=== PATIENT | female | born 1985 | race Caucasian/White ===

== ENCOUNTER 2021-12-05 14:11 | Outpatient (RCR) | payer BC, MEDICAID, SELFPAY | END 2022-10-03 23:59 | disposition home or self-care (01) | PROVIDERS: PCP Nurse Practitioner Family; Visit Provider Nurse Practitioner Family | DX: S93.402D Sprain of unspecified ligament of left ankle, subsequent encounter (principal); Z51.89 Encounter for other specified aftercare | CPT/HCPCS: 97110; 97162 ==

== ENCOUNTER 2022-05-10 10:38 | Emergency (ER) | payer OTHER, SELFPAY ==
[2022-05-10 10:47] VITALS: BP 135/74; PULSE 84; RESP 20; TEMP 36.4; O2SAT 98; BMI 31.1
--- NOTE | 2022-05-10 11:16 | ED.GENADULT ---
HPI - General Adult General Chief complaint: Laceration/Wound Stated complaint: Work Comp-Finger laceration Time Seen by Provider: 05/10/22 10:58 Source: patient Mode of arrival: ambulatory Limitations: no limitations History of Present Illness HPI narrative: 37-year-old female coming in today after suffering a laceration. Patient was at work at [employer] cutting food with a knife when she accidentally sliced a piece of her thumb off. Denies any other injury. Tetanus shot is up-to-date. Related Data Home Medications Medication Instructions Recorded Confirmed albuterol sulfate 90 mcg/actuation 2 inh inhalation Q4H PRN 10/29/21 05/10/22 aerosol inhaler (Ventolin HFA) diclofenac sodium 1 % topical gel 2 g topical QID 10/29/21 05/10/22 (Voltaren Arthritis Pain) levonorgestrel 21 mcg/24 hours (8 1 device intrauterine ONCE 12/14/21 05/10/22 yrs) 52 mg intrauterine device (Mirena) Allergies Allergy/AdvReac Type Severity Reaction Status Date / Time No Known Drug Allergies Allergy Verified 03/25/22 15:06 Review of Systems Status of ROS: Reports: 6 or more systems reviewed and unremarkable except as noted in History and below PFSH PFSH Family History (Updated 09/26/21 @ 13:32 by Jessica Abrams) Other Cancer Social History Smoking Status: Current every day smoker What tobacco products do you use: cigarettes Smoking packs per day: 0.5 Smoking cigarettes per day: 10.0 Do you use any of these nicotine containing products: None Second hand tobacco smoke exposure: No How often do you have a drink containing alcohol: never How many standard drinks containing alcohol do you have on a typical day: 1 or 2 How often do you have six or more drinks on one occasion: Less than monthly AUDIT-C Alcohol total score: 1 Non-prescribed substance use: denies use Exam Narrative: Exam Narrative: Well-nourished well-developed patient in no acute distress. Alert and oriented. Answers questions appropriately. Mood and affect are appropriate. Thoughts are goal oriented and rational. No tangential or magical thinking noted. Patient speaks in full sentences without needing to catch her breath. HEENT: Normocephalic atraumatic. Pupils are equally round reactive to light. Extraocular muscles are intact. Conjunctivae are moist without any icterus noted. Extremities: Patient has a laceration to the medial tip of the left thumb. The laceration is approximately 5-6 mm in length and 2-3 mm wide. She has cut the skin clear off. She has oozing around the skin edges, no arterial bleed noted. Const: Vital Signs, click to edit/add: Vital Signs - 24 hr 05/10/22 10:47 Temperature 97.5 F L Pulse Rate [Pulse Oximeter] 84 Respiratory Rate 20 Blood Pressure [Ri ght Upper Arm] 135/74 Pulse Oximetry 98 Oxygen Delivery Me thod Room Air Course Course Hospital Course: Finger was cleaned with wound cleanser and wound explored. Surgicel was used for hemostasis. Laceration was dressed appropriately. There was nothing to be sutured together. Vital Signs Vital signs: Initial Vital Signs Temperature 97.5 F L 05/10/22 10:47 Temperature Source Temporal Artery Scan 05/10/22 10:47 Pulse Rate 84 05/10/22 10:47 Respiratory Rate 20 05/10/22 10:47 Blood Pressure 135/74 05/10/22 10:47 Blood Pressure Mean 94 05/10/22 10:47 Blood Pressure Position Sitting 05/10/22 10:47 Pulse Oximetry 98 05/10/22 10:47 Oxygen Delivery Method 05/10/22 10:47 Vital Signs Temperature 97.5 F L 05/10/22 10:47 Pulse Rate 84 05/10/22 10:47 Respiratory Rate 20 05/10/22 10:47 Blood Pressure 135/74 05/10/22 10:47 Pulse Oximetry 98 05/10/22 10:47 Oxygen Delivery Method 05/10/22 10:47 Temperature 97.5 F L 05/10/22 10:47 Pulse Rate 84 05/10/22 10:47 Respiratory Rate 20 05/10/22 10:47 Blood Pressure 135/74 05/10/22 10:47 Pulse Oximetry 98 05/10/22 10:47 Oxygen Delivery Method 05/10/22 10:47 Medical Decision Making MDM Narrative Medical decision making narrative: 37-year-old female a laceration treated per above. We discussed wound hygiene, signs symptoms of infections, reasons to return for follow-up. Patient was agreeable and had no other questions. Discharge Plan Discharge Clinical Impression: Laceration Patient Disposition: Home, Self-Care Condition: Improved Additional Instructions: Keep finger clean and dry. Okay to shower as usual. Do not soak the finger such as bathing or swimming. Change dressing once daily. Monitor for signs of infection which include redness of the thumb, swelling or purulent drainage. Follow-up with your doctor right away if this occurs. Prescriptions: No Action albuterol sulfate [Ventolin HFA] 90 mcg/actuation HFA aerosol inhaler 2 inh inhalation Q4H PRN diclofenac sodium [Voltaren Arthritis Pain] 1 % gel 2 g topical QID Rx Instructions: apply to single elbow, wrist or hand; for hand includes palm/fingers/back of hand Mirena 20 mcg/24 hours (7 yrs) 52 mg intrauterine device 1 device intrauterine ONCE Rx Instructions: as a single dose Follow Up/Referrals: Emilee Byrd APRN, HERBICIDE SPRAYER [Primary Care Provider] - Stand Alone Forms: [facility] Info Instructions
== END 2022-05-10 11:32 | disposition home or self-care (01) ==
PROVIDERS: Emergency Provider Family Medicine; PCP Nurse Practitioner Family
DX: S61.012A Laceration without foreign body of left thumb without damage to nail, initial encounter (principal); W26.0XXA Contact with knife, initial encounter; Y99.0 Civilian activity done for income or pay
CPT/HCPCS: 12001; 99283

== ENCOUNTER 2022-06-24 08:42 | Outpatient (CLI) | payer OTHER, SELFPAY | END 2022-06-24 08:43 | disposition home or self-care (01) | PROVIDERS: PCP Nurse Practitioner Family; Visit Provider Nurse Practitioner Family | DX: Z11.59 Encounter for screening for other viral diseases (principal) | CPT/HCPCS: 86706; 86765; 86787 ==

== ENCOUNTER 2022-12-18 11:05 | Outpatient (CLI) | payer OTHER, SELFPAY ==
[2022-12-18 14:00] LABS: Clue Cells No Clue Cells Seen (None Seen); Trichomonas No Trichomonas Seen (None Seen); Yeast No Yeast Seen (None Seen)
== END 2022-12-18 11:06 | disposition home or self-care (01) ==
LOC: FBOREF 11:10
PROVIDERS: PCP Nurse Practitioner Family; Visit Provider Family Medicine
DX: N89.8 Other specified noninflammatory disorders of vagina (principal)
CPT/HCPCS: 87210

== ENCOUNTER 2023-02-20 08:08 | Outpatient (CLI) | payer OTHER, SELFPAY ==
[2023-02-20 14:12] LABS: SARS PCR* POSITIVE SARS-CoV-2 (Negative)
== END 2023-02-20 08:09 | disposition home or self-care (01) ==
LOC: KYNREF 08:08
PROVIDERS: PCP Nurse Practitioner Family; Visit Provider Nurse Practitioner Family
DX: Z20.822 Contact with and (suspected) exposure to COVID-19 (principal)
CPT/HCPCS: 87635

== ENCOUNTER 2023-10-24 09:58 | Outpatient (CLI) | payer OTHER, SELFPAY ==
--- OUTSIDE RECORDS SUMMARY | 2023-10-24 10:01 | XMS_ITS ---
Author Organization [facility] Address [address] [place] [address] Care Team Providers Care Sales Systems Engineer Name Role Phone Unavailable Unavailable Unavailable Surgery Details Not on file Complications Check Surgery Details section. Procedure Estimated Blood Loss Check Surgery Details section. Procedure Findings Check Surgery Details section. Procedure Specimens Taken Check Surgery Details section.
--- OUTSIDE RECORDS SUMMARY | 2023-10-24 10:01 | XMS_ITS | Clinical Summary ---
Author Organization [facility] Address [place], [place] [address] Care Team Providers Care Landscaping Manager Name Role Phone Peyton Polanco Shaila PA Unavailable [phone] Emilee Byrd TRIMMING MACHINE OPERATOR Primary Care Provider [phone] Allergies No known active allergies Medications Medication Sig Dispensed Refills Start Date End Date Status acetaminophen (TYLENOL EXTRA STRGTH) 500 mg tabletIndications: Changing skin lesion Take 1-2 Tablets by mouth every 6 hours if needed. Max acetaminophen dose: 4000mg in 24 hrs. 05/25/2020 Active ibuprofen (ADVIL; MOTRIN) 200 mg tabletIndications: Changing skin lesion Take 1-3 Tablets by mouth every 6 hours if needed for Pain. 50 Tablet 05/25/2020 Active durable medical equipment (DME)Indications:S prain of right ankle, unspecified ligament, subsequent encounter Neoprene ankle brace. 1 Each 09/29/2020 Active Ventolin HFA 90 mcg/actuation inhaler INHALE 2 PUFFS BY MOUTH EVERY 4 HOURS NEEDED FOR COUGH 05/31/2021 Active codeine-guaiFENesi n (ROBITUSSIN AC) 10-100 mg/5 mL liquid TAKE 10 TO 15 ML BY MOUTH EVERY 6 HOURS 05/31/2021 Active benzonatate (TESSALON) 200 mg capsuleIndications :Cough Take 1 Capsule (200 mg) by mouth 3 times daily if needed for Cough. 21 Capsule 07/25/2021 Active albuterol HFA (PRO-AIR; VENTOLIN; PROVENTIL) 90 mcg/actuation inhalerIndications :Cough Inhale 1-2 Puffs by mouth every 4 hours if needed for Shortness of Breath 1st choice or Wheezing 2nd choice. 1 Each 07/25/2021 Active CrutchIndications: Left foot pain For home use. 2 Each 11/04/2021 Active Active Problems Problem Noted Date Diagnosed Date IUD (intrauterine device) in place 05/22/2020 Overview: 12/2017 mirena. Screening breast examination 06/26/2015 Immunizations Name Administration Dates Next Due COVID-19 vaccine (iBio 30mcg/0.3mL) P F, MDV 08/31/2020,08/10/2020 Influenza Virus, Unspecified 03/04/2014 Influenza, IIV4 03/04/2014 Influenza, IIV4 (=>6mos) MDV 02/13/2015 Rubella 10/31/2005 Tdap 02/04/2020,09/09/2017 Family History Medical History Relation Name Comments Cancer-colon Father Relation Name Status Comments Father Social History Tobacco Use Types Packs/Day Years Used Date Smoking Tobacco: Every Day Cigarettes 0.5 10 Smokeless Tobacco: Never Tobacco Cessation:Ready to Q uit: No; Counseling Given: Yes Alcohol Use Standard Drinks/Week Comments Yes 1 (1 standard drink = 0.6 oz pur e alcohol) rare Social Connections Answer Date Recorded Frequency of Communication with Friends and Fami ly Not on file 03/17/2021 Financial Resource Strain Answer Date R ecorded Difficulty of Paying Living Expenses Not on file 03/17/2021 Difficulty of Paying Living Expenses Not on file 03/17/2021 Sex and Gender Information Value Date Recorded Sex Assigned at Not on file Gender Identity Not on file Sexual Orientation Not on file Obstetrics History Para Term AB IAB SAB Ectopic Multiple Livin g Live Births 2 Date Outcome GA Total Labor Labor/2nd/3rd Weight Sex Type Anes PTL Lindsey A1 A5 Name Clin 006 F 008 M Last Filed Vital Signs Vital Sign Reading Time Taken Comments Blood Pressure 126/84 11/04/2021 7:53 AM CDT Pulse 90 11/04/2021 7:53 AM CDT Temperature 37.1 ??C (98.8 ??F) 11/04/2021 7:00 AM CD T Respiratory Rate 18 11/04/2021 7:53 AM CDT Oxygen Saturation 97% 11/04/2021 7:53 AM CDT Inhaled Oxygen Concentration - - Weight 72.6 kg (160 lb) 11/04/2021 7:53 AM CDT Height 152.4 cm (5') 11/04/2021 7:53 AM CDT Body Mass Index 31.25 11/04/2021 7:53 AM CDT Plan of Treatment Health Maintenance Due Date Last Done Comments Depression screening for age 12+ 1998 HIV for age 15-65 2001 Hepatitis C screening for age 18-79 02/13/2004 Pap test for age 21-65 2007 BMI (ht and wt on same day) for age 18+ 09/14/2021 09/14/2020, 09/07/2020, 05/22/2020, Additional history exists COVID-19 vaccine series ( season) 2022 08/31/2020, 08/10/2020 Influenza for age 9-49 11/16/2023 5, 03/04/2014, 03/04/2014 Tetanus booster 02/03/2030 02/04/2020, 09/09/2017 Tdap Completed 02/04/2020, 09/09/2017 Pneumococcal series for age 6-64 Aged Out No longer eligible based on patient's age to complete this topic Advance Directives * Full Code (Latest Code Status on File) Date Activated Date Inactivated Comments 05/25/2020 12:50 PM 05/25/2020 7:07 PM Question Answer Comments Code Status Discussion: Discussed Care Teams Landscaping Manager Relationship Specialty Start Date End Date Emilee Byrd NP [address] [place] [address] [place] [id number] PCP - General Emergency Medicine 11/04/21 Peyton Polanco PA 12/30/18
--- OUTSIDE RECORDS SUMMARY | 2023-10-24 10:01 | XMS_ITS | Clinical Summary ---
Author Organization [facility] Address [address] [place] [address] Care Team Providers Care Labor Relations Supervisor Name Role Phone Elsewhere, Pcp Primary Care Provider Unavailabl e Source Comments Patient records contain information from all sites at [facility]. For routine questions regarding patient records, call [phone] during business hours, M-F 8:00 AM - 5:00 PM Central Time. 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/2018 Moderate Or Severe Use Disor tesha (Dependence) Alcohol Remission 09/24/2018 Overview (09/24/2018): Cessation 08/29/2005 Immunizations Name Administration Dates Next Due Influenza, Injectable, Quadrivalent 02/13/2015 Influenza, Unspecified 03/04/2014 Rubella 10/31/2005 Tdap 09/09/2017 influenza vaccine quad (FLUZ ONE/FLUARIX) (6 months and older)(PF) 03/04/2014 Family History Medical History Relation Name Comments mental health issues Brother No Known Problems Father No Known Problems Mother No Known Problems Paternal Grandmother No Known Problems Sister 1 pat No Known Problems Sister 2 Relation Name Status Comments Brother Alive Father Alive Mother Alive Paternal Grandmother Sister 1 pat Alive Sister 2 Alive Social History Tobacco Use Types Packs/Day Years Used Date Smoking Tobacco: Every Day Cigarettes Humiliation, Afraid, Rape, and Kick questionnair e Answer Date Recorded Fear of Current or Ex-Partner No Emotionally Abused Patient declined 09/24/2018 Physically Abused No 09/24/2018 Sexually Abused Not on file 09/24/2018 Social Connection and Isolat ion Panel [NHANES] Answer Date Recorded Frequency of Communication w ith Friends and Family More than three times a week 09/24/2018 Frequency of Social Gatherin gs with Friends and Family Once a week 09/24/2018 Attends Catholic Services More than 4 times per year 09/24/2018 Active Member of Clubs or Organizations No 09/24/2018 Attends Club or Organization Meetings Never 09/24/2018 Marital Status Not on file 09/24/2018 AUDIT-C Answer Date Recorded Frequency of Alcohol Consumption Never 09/24/2018 Average Number of Drinks Patient declined 2018 Frequency of Binge Drinking Never 09/14 Overall Financial Resource Strain (CARDIA) Answe r Date Recorded Difficulty of Paying Living Expenses Not hard at all 09/24/2018 [employer] [facility] ional Health - Occupational Stress Questionnaire Answer Date Recorded Feeling of Stress To some extent 09/24/2018 Exercise Vital Sign Answer Date Recorde d Days of Exercise per Week 7 days 2018 Minutes of Exercise per Session Not on file 09/24/2018 Hunger Vital Sign Answer Date Recorded Worried About Running Out of Food in the Last Ye ar Never true 09/24/2018 Ran Out of Food in the Last Year Never true 09/24/2018 PRAPARE - Transportation Answer Date Re corded Lack of Transportation (Medical) No 09/24/2018 Lack of Transportation (Non-Medical) No 09/24/2018 Nutrition Answer Date Recorded Nutrition: EVOO Fat Source Unknown 05/18 Nutrition: Servings of Fruits/Vegetables per Day Not on file 05/18/2020 Dental Answer Date Recorded Dental: Regular Dentist Unknown 05/19/19 21 Education Answer Date Recorded What is the highest level of school you have completed or the highest degree you have received? Associate degree: occupational, technical, or vocational program 09/24/2018 Sex and Gender Information Value Date Recorded Sex Assigned at Female 01/13/2020 1:54 PM CDT Gender Identity Female 01/13/2020 1:54 PM CDT Sexual Orientation Straight 01/13/2020 1: 54 PM CDT Last Filed Vital Signs Vital Sign Reading Time Taken Comments Blood Pressure 132/81 10/18/2022 5:45 PM CDT Pulse 74 10/18/2022 5:45 PM CDT Temperature 36.7 ??C (98 ??F) 10/18/2022 5:45 PM CDT Respiratory Rate 15 10/18/2022 5:45 PM CDT Oxygen Saturation 98% 10/18/2022 5:45 PM CDT Inhaled Oxygen Concentration - - Weight 72 kg (158 lb 11.7 oz) 09/24/2018 10:31 A M CDT Height - - Body Mass Index - - Plan of Treatment Health Maintenance Due Date Last Done Comments Lipid (Cholesterol) Screening 1986 Pneumococcal vaccine (0-64 years) (1 of 2 - PCV) 02/13/1992 Hepatitis A Vaccines (1 of 2 - Risk 2-dose series) 2005 Cervical Cancer Screening 12/21/2006 12/22/2003 COVID-19 Vaccine (3 - season) 2022 08/31/2020, 08/10/2020 Depression Screening (Annual PHQ-2) 03/17/2023 Influenza Vaccine (#1) 2023 3, 02/13/2015, 03/04/2014, Additional history exists DTaP,Tdap,and Td Vaccines (3 - Td or Tdap) 02/03/2030 02/04/2020, 09/09/2017 HIV Screening Completed 09/24/2018 Hepatitis B Vaccines Completed 10/28/2022, 07/29/2022, 06/27/2022 HPV Vaccines Aged Out No longer eligi ble based on patient's age to complete this topic Procedures Procedure Name Priority Date/Time Associated Diagnosis Comments HIV-1 P24 AG, HIV-1/2 AB SCRN, P Routine 09/24/2018 11:18 AM CDT Exposure Hepatitis C PATHOLOGY [facility] Routine 12/22/2003 6:09 PM CDT from Last 3 Months or Most Recently Relevant to Health Maintenance Results * HIV-1 p24 Ag, HIV-1/2 Ab Scrn, P (09/24/2018 11:18 AM CDT) HIV Ag/Ab Screen, P Negative Negative 09/25/2018 1:10 PM CDT Comment: Negative result does not rule out HIV infection. If exposure to HIV infection occurred <14 days ago, contact the laboratory to request addition of HIV-1 RNA detection / quantification test. HIV-1 p24 Ag Screen, P Negative Negative 09/25/2018 1:10 PM CDT Comment: Negative result does not rule out HIV infection. If exposure to HIV infection occurred <14 days ago, contact the laboratory to request addition of HIV-1 RNA detection / quantification test. HIV-1 Ab Screen, P Negative Negative 2018 1:10 PM CDT Comment: Negative result does not rule out HIV infection. If exposure to HIV infection occurred <14 days ago, contact the laboratory to request addition of HIV-1 RNA detection / quantification test. HIV-2 Ab Screen, P Negative Negative 2018 1:10 PM CDT Comment: Negative result does not rule out HIV infection. If exposure to HIV infection occurred <14 days ago, contact the laboratory to request addition of HIV-1 RNA detection / quantification test. Blood (Blood, Venous) 09/24/2018 11:18 AM CDT 09/25/2018 11:20 AM CDT Tania Velasco M.D. LAB MICROBIOLOGY - B LOOD ORDERABLES Performing Organization Address City/State/[facility] Co de Phone Number [facility] [address] [place] [address] * Pathology [facility] (12/22/2003 6:09 PM CDT) 12/22/2003 6:09 PM CDT 12/22/2003 6:09 PM CDT Narrative [facility] - 12/22/2003 6:09 PM CDT ??12/22/2003 Cytology Gynecological ?([id number]) ? Requested By: ??Ann-Marie Nayak, P.A. ??[phone] ?DIAGNOSIS: ?? A. ??ThinPrep Pap Test Screen (Cervical/Endocervical HPV Reflex): ?Satisfactory for evaluation. ?Negative for intraepithelial lesion or malignancy. ? 12/23/2003 ?Deedee Vasquez, CT(ASCP) Samantha Menchaca M.D. ?[phone] ?? SPECIMEN DESCRIPTION: A. ??ThinPrep Pap Test Screen (Cervical/Endocervical HPV Reflex): ?? Received cloudy specimen in ThinPrep vial. ? Procedure Note 06/09/2017 12/22/2003 Cytology Gynecological ([id number]) Requested By: Ann-Marie Nayak, P.A. [phone] DIAGNOSIS: A. ThinPrep Pap Test Screen (Cervical/Endocervical HPV Reflex): Satisfactory for evaluation. Negative for intraepithelial lesion or malignancy. 12/23/2003 ROSALIO Amanda(ASCP) aSmantha Menchaca M.D. [phone] SPECIMEN DESCRIPTION: A. ThinPrep Pap Test Screen (Cervical/Endocervical HPV Reflex): Received cloudy specimen in ThinPrep vial. Ann-Marie Nayak LAB PAP COPATH ORDER [facility] [address] [place] [address], [facility] from Last 3 Months or Most Recently Relevant to Health Maintenance Care Teams Labor Relations Supervisor Relationship Specialty Start Date End Date Elsewhere, Pcp PCP - General 04/05/19
--- OUTSIDE RECORDS SUMMARY | 2023-10-24 10:01 | XMS_ITS | Referral Summary ---
Author Organization [facility] Address [address] [place] [address] Care Team Providers Care Track Service Worker Name Role Phone Elsewhere, Pcp Primary Care Provider Unavailabl e Source Comments Patient records contain information from all sites at [facility]. For routine questions regarding patient records, call [phone] during business hours, M-F 8:00 AM - 5:00 PM Central Time. Record requests for emergency care only can be directed to [phone] at any time.[facility] Allergies No known active allergies Medications No [...] (FLUZ ONE/FLUARIX) (6 months and older)(PF) 03/04/2014 Social History Tobacco Use Types Packs/Day Years [...] and Family Once a week 09/24/2018 Attends Protestant Services More than 4 times per year [...] Living Expenses Not hard at all 09/24/2018 [facility] Occup[facility] ional Health - Occupational Stress [...] Date Recorded Dental: Regular Dentist Unknown 05/19/19 Education Answer Date Recorded What is the [...] Mass Index - - Plan of Treatment Not on file Procedures Procedure Name Priority Date/Time Associated Diagnosis Comments HIV-1 P24 AG, HIV-1/2 AB SCRN, P Routine 09/24/2018 11:18 AM CDT Exposure Hepatitis C PATHOLOGY [employer]LY[employer] CYTOLOGY Routine 12/22/2003 6:09 PM CDT from [...] M.D. LAB MICROBIOLOGY - B LOOD ORDERABLES [facility] [address] [place] [id number] * Pathology [employer]ES CONTRACTS ANALYST Cytology (12/22/2003 6:09 PM CDT) 12/22/2003 6:09 PM CDT 12/22/2003 6:09 PM CDT Narrative [facility] [place] - 12/22/2003 6:09 PM CDT ??12/22/2003 Cytology Gynecological ?([id number]) ? Requested By: ??Ann-Marie Nayak, P.A. ??[phone] ?DIAGNOSIS: ?? A. ??ThinPrep Pap Test Screen (Cervical/Endocervical HPV Reflex): ?Satisfactory for evaluation. ?Negative for intraepithelial lesion or malignancy. ? 12/23/2003 ?ROSALIO Amanda(ASCP) Samantha Menchaca M.D. ?[phone] ?? SPECIMEN DESCRIPTION: A. ??ThinPrep Pap Test Screen (Cervical/Endocervical HPV Reflex): ?? Received cloudy specimen in ThinPrep vial. ? Procedure Note 06/09/2017 12/22/2003 Cytology Gynecological ([id number]) Requested By: Ann-Marie Nayak, P.A. [phone] DIAGNOSIS: A. ThinPrep Pap Test Screen (Cervical/Endocervical HPV Reflex): Satisfactory for evaluation. Negative for intraepithelial lesion or malignancy. 12/23/2003 ROSALIO Amanda(ASCP) Samantha Menchaca M.D. [phone] SPECIMEN DESCRIPTION: A. ThinPrep Pap Test Screen (Cervical/Endocervical HPV Reflex): Received cloudy specimen in ThinPrep vial. Ann-Marie Nayak LAB PAP COPATH ORDER [facility] [address] [place] [address], [facility] from Last 3 Months or Most Recently Relevant to Health Maintenance Care Teams Track Service Worker Relationship Specialty Start Date End Date Elsewhere, Pcp PCP - General 04/05/19
--- NOTE | 2023-10-24 10:15 | CRLHL7_ITS ---
For Patients: As a result of the Century Cures Act, medical imaging exams and procedure reports are released immediately into your electronic medical record. You may view this report before your referring provider. If you have questions, please contact your health care provider. CLINICAL HISTORY: Pelvic and perineal pain TECHNIQUE: 2D zaidi scale ultrasound. In addition color Doppler and spectral Doppler analysis was performed of the pelvis using a transabdominal and transvaginal approach. FINDINGS: The myometrium has a normal uniform echotexture. The uterus measures 7.9 x 3.5 x 5.2 cm. The endometrial lining appears normal and measures 3.4 mm in thickness. IUD is present in good position within the endometrial canal. The right ovary measures 2.7 x 1.7 x 2.3 cm in size and the right ovary measures 3.2 x 1.8 x 2.2 cm. The ovaries demonstrate normal arterial and venous blood flow on color Doppler and spectral Doppler analysis. There are no suspicious fluid collections within the cul-de-sac. Trace physiologic free fluid noted. IMPRESSION: Normal ovaries. No torsion or excess pelvic free fluid. Normal position of the IUD within the endometrial canal. Dictated by Arian Mullins MD @ 10/24/2023 12:08:40 PM (Electronically Signed)
== END 2023-10-24 09:59 | disposition home or self-care (01) ==
LOC: US 09:59
PROVIDERS: PCP Nurse Practitioner Family; Visit Provider Obstetrics & Gynecology
DX: R10.2 Pelvic and perineal pain (principal)
CPT/HCPCS: 76830; 76856; 93976

== ENCOUNTER 2023-11-04 08:46 | Outpatient (CLI) | payer OTHER, SELFPAY ==
--- OUTSIDE RECORDS SUMMARY | 2023-11-04 08:51 | XMS_ITS | Referral Summary ---
Author Organization [facility] Address [address] [place] [address] Care Team Providers Care Grader Green Meat Name Role Phone Elsewhere, Pcp Primary Care Provider Unavailabl e Source Comments Patient records contain information from all sites at [facility]. For routine questions regarding patient records, call [phone] during business hours, M-F 8:00 AM - 5:00 PM Central Time. Record requests for emergency care only can be directed to [phone] at any time.[facility] Allergies No known active allergies Medications No [...] and Family Once a week 09/24/2018 Attends Mandaeism Services More than 4 times per year [...] Living Expenses Not hard at all 09/24/2018 [facility] - Occupational Stress [...] 11:18 AM CDT Exposure Hepatitis C PATHOLOGY MANAGER COMMUNITY OUTREACH CYTOLOGY Routine 12/22/2003 6:09 PM CDT from [...] M.D. LAB MICROBIOLOGY - B LOOD ORDERABLES [facility] [address] [place] [id number] * Pathology MANAGER COMMUNITY OUTREACH Cytology (12/22/2003 6:09 PM CDT) 12/22/2003 6:09 PM CDT 12/22/2003 6:09 PM CDT Narrative [facility] - 12/22/2003 6:09 PM CDT ??12/22/2003 Cytology Gynecological ?([id number]) ? Requested By: ??Ann-Marie Nayak, P.A. ??[phone] ?DIAGNOSIS: ?? A. ??ThinPrep Pap Test Screen (Cervical/Endocervical HPV Reflex): ?Satisfactory for evaluation. ?Negative for intraepithelial lesion or malignancy. ? 12/23/2003 ?ROSALIO Amanda(ASCP) Samantha Menchaca M.D. ?[phone] ?? SPECIMEN DESCRIPTION: A. ??ThinPrep Pap Test Screen (Cervical/Endocervical HPV Reflex): ?? Received cloudy specimen in ThinPrep vial. ? Procedure Note 06/09/2017 12/22/2003 Cytology Gynecological ([id number]) Requested By: Ann-Marie Nayak, P.A. [phone] DIAGNOSIS: A. ThinPrep Pap Test Screen (Cervical/Endocervical HPV Reflex): Satisfactory for evaluation. Negative for intraepithelial lesion or malignancy. 12/23/2003 ROSALIO Amanda(ASCP) Samantha Menchaca M.D. [phone] SPECIMEN DESCRIPTION: A. ThinPrep Pap Test Screen (Cervical/Endocervical HPV Reflex): Received cloudy specimen in ThinPrep vial. Ann-Marie Nayak LAB PAP COPATH ORDER [facility] [address] [place] [address], [facility] from Last 3 Months or Most Recently Relevant to Health Maintenance Care Teams Grader Green Meat Relationship Specialty Start Date End Date Elsewhere, Pcp PCP - General 04/05/19
--- OUTSIDE RECORDS SUMMARY | 2023-11-04 08:51 | XMS_ITS ---
Author Organization [facility] Address [address] [place] [address] Care Team Providers Care Mallet And Die Cutter Name Role Phone Unavailable Unavailable Unavailable Surgery Details Not on file Complications Check Surgery Details section. Procedure Estimated Blood Loss Check Surgery Details section. Procedure Findings Check Surgery Details section. Procedure Specimens Taken Check Surgery Details section.
--- OUTSIDE RECORDS SUMMARY | 2023-11-04 08:51 | XMS_ITS | Clinical Summary ---
Author Organization [facility] Address [place], [place] [address] Care Team Providers Care River Expedition Guide Name Role Phone Peyton Polanco Shaila PA Unavailable [phone] Emilee Byrd POWERTRAIN CONTROL SYSTEMS ENGINEER Primary Care Provider [phone] Allergies No known active allergies Medications Medication [...] Name Administration Dates Next Due COVID-19 vaccine (Adomik 30mcg/0.3mL) P F, MDV 08/31/2020,08/10/2020 Influenza Virus, [...] Comments Code Status Discussion: Discussed Care Teams River Expedition Guide Relationship Specialty Start Date End Date Emilee Byrd NP [address] [place] [address] [place] [id number] PCP - General Emergency Medicine 11/04/21 Peyton Polanco PA 12/30/18
--- OUTSIDE RECORDS SUMMARY | 2023-11-04 08:51 | XMS_ITS | Clinical Summary ---
Author Organization [facility] Address [address] [place] [address] Care Team Providers Care Automatic Pinsetter Mechanic Name Role Phone Elsewhere, Pcp Primary Care Provider Unavailabl e Source Comments Patient records contain information from all sites at [facility]. For routine questions regarding patient records, call [phone] during business hours, M-F 8:00 AM - 5:00 PM Central Time. Record requests for emergency care only can be directed to [phone] at any time.[facility] Allergies No known active allergies Medications No [...] and Family Once a week 09/24/2018 Attends Christian Services More than 4 times per year [...] Living Expenses Not hard at all 09/24/2018 [facility] - Occupational Stress [...] 11:18 AM CDT Exposure Hepatitis C PATHOLOGY SPLUNK DEVELOPER CYTOLOGY Routine 12/22/2003 6:09 PM CDT from [...] - B LOOD ORDERABLES Performing Organization Address City/State/[facility] Co de Phone Number [facility] [address] [place] [address] * Pathology SPLUNK DEVELOPER Cytology (12/22/2003 6:09 PM CDT) 12/22/2003 6:09 PM CDT 12/22/2003 6:09 PM CDT Narrative [facility] - 12/22/2003 6:09 PM CDT ??12/22/2003 Cytology Gynecological ?([id number]) ? Requested By: ??Ann-Marie Nayak, P.A. ??[phone] ?DIAGNOSIS: ?? A. ??ThinPrep Pap Test Screen (Cervical/Endocervical HPV Reflex): ?Satisfactory for evaluation. ?Negative for intraepithelial lesion or malignancy. ? 12/23/2003 ?Deedee Vasquez, CT(ASCP) Samantha Menchaca M.D. ?[phone] ?? SPECIMEN DESCRIPTION: A. ??ThinPrep Pap Test Screen (Cervical/Endocervical HPV Reflex): ?? Received cloudy specimen in ThinPrep vial. ? Procedure Note 06/09/2017 12/22/2003 Cytology Gynecological ([id number]) Requested By: Ann-Marie Nayak, P.A. [phone] DIAGNOSIS: A. ThinPrep Pap Test Screen (Cervical/Endocervical HPV Reflex): Satisfactory for evaluation. Negative for intraepithelial lesion or malignancy. 12/23/2003 ROSALIO Amanda(ASCP) Samantha Menchaca M.D. [phone] SPECIMEN DESCRIPTION: A. ThinPrep Pap Test Screen (Cervical/Endocervical HPV Reflex): Received cloudy specimen in ThinPrep vial. Ann-Marie Nayak LAB PAP COPATH ORDER [facility] [address] [place] [address], [facility] from Last 3 Months or Most Recently Relevant to Health Maintenance Care Teams Automatic Pinsetter Mechanic Relationship Specialty Start Date End Date Elsewhere, Pcp PCP - General 04/05/19
== END 2023-11-04 08:47 | disposition home or self-care (01) ==
PROVIDERS: PCP Nurse Practitioner Family; Visit Provider Physician Assistant
DX: Z01.419 Encounter for gynecological examination (general) (routine) without abnormal findings (principal); R63.5 Abnormal weight gain; Z13.6 Encounter for screening for cardiovascular disorders; Z13.1 Encounter for screening for diabetes mellitus
CPT/HCPCS: 80061; 82947; 84443

== ENCOUNTER 2023-12-10 07:16 | Outpatient (RCR) | payer OTHER, SELFPAY | END 2024-04-08 23:59 | disposition home or self-care (01) | PROVIDERS: PCP Nurse Practitioner Family; Visit Provider Obstetrics & Gynecology | DX: R39.14 Feeling of incomplete bladder emptying (principal); K59.00 Constipation, unspecified; R27.8 Other lack of coordination; N81.4 Uterovaginal prolapse, unspecified; Z51.89 Encounter for other specified aftercare | CPT/HCPCS: 97161; 97535 ==

== ENCOUNTER 2024-11-30 09:10 | Outpatient (CLI) | payer OTHER, SELFPAY | END 2024-11-30 09:11 | disposition home or self-care (01) | LOC: NFLDREF 09:11 | PROVIDERS: PCP Nurse Practitioner Family; Visit Provider Obstetrics & Gynecology | DX: Z13.6 Encounter for screening for cardiovascular disorders (principal) | CPT/HCPCS: 80061 ==

== ENCOUNTER 2024-12-29 09:35 | Outpatient (CLI) | payer OTHER, SELFPAY | END 2024-12-29 09:36 | disposition home or self-care (01) | PROVIDERS: PCP Nurse Practitioner Family; Visit Provider Registered Nurse | DX: L63.8 Other alopecia areata (principal) | CPT/HCPCS: 82728; 83540; 83550; 84443; 86592 ==